=== PATIENT | female | born 1975 | race Caucasian/White ===

== ENCOUNTER 2016-11-15 09:26 | Observation (INO) | payer OTHER ==
[~2016-11-15] VITALS: Ht 170.2 cm; Wt 83.0 kg
[2016-11-15] MEDS ORDERED: SERT50TA PO (09:43)
[2016-11-15] MEDS ORDERED: CLON-412 PO (09:43)
[2016-11-15 12:38] LABS: ALBUMIN 3.1 GM/DL (3.2-5.2); ALBUMIN/GLOBULIN RATIO 0.72 (1.00-1.93); ALKALINE PHOSPHATASE 83 U/L (45-117); ALT/SGPT 35 U/L (12-78); ANION GAP 10 MEQ/L (8-16); AST/SGOT 18 U/L (15-37); BILIRUBIN,DIRECT < 0.1 MG/DL (0.0-0.2); BILIRUBIN,TOTAL 0.3 MG/DL (0.2-1.0); BLOOD UREA NITROGEN 11 MG/DL (7-18); CALCIUM LEVEL 8.9 MG/DL (8.5-10.1); CARBON DIOXIDE LEVEL 24 MEQ/L (21-32); CHLORIDE LEVEL 106 MEQ/L (98-107); CREATININE FOR GFR 0.78 MG/DL (0.55-1.02); GLOMERULAR FILTRATION RATE > 60.0 (>58); GLUCOSE, FASTING 136 MG/DL (70-105); POTASSIUM SERUM 4.3 MEQ/L (3.5-5.1); SODIUM LEVEL 140 MEQ/L (136-145); TOTAL PROTEIN 7.4 GM/DL (6.4-8.2)
[2016-11-15 12:41] LABS: MEAN CORPUSCULAR HEMOGLOBIN 29.5 pg (27.0-33.0); MEAN CORPUSCULAR HGB CONC 33.9 g/dl (32.0-36.5); RED CELL DISTRIBUTION WIDTH 15.2 % (11.5-14.5); WHITE BLOOD COUNT 16.8 K/mm3 (4.0-10.0)
[2016-11-15] MEDS ORDERED: PANTOPRAZOLE 40MG INJ (PROTONIX) (C9113) IV SCH (13:00)
[2016-11-15] MEDS ORDERED: ONDANSETRON 4MG/2ML VIAL (J2405) IV PRN (13:15)
[2016-11-15 14:57] LABS: METHADONE URINE NEGATIVE (NEGATIVE)
[2016-11-15] MEDS: NS 1,000 ML IV SCH (15:10)
--- NOTE | 2016-11-15 15:14 | ECGEPIP ---
Stationary ECG Study [facility] - ED Test Date: 2016-11-15 Pat Name: ROBINA DELACRUZ Department: Room: [place] [address] Gender: F Quality Rn: cody : 1975 Requested By: Viviana Gutierrez Order Number: [id number] Reading MD: Edward Khan Measurements Intervals [place] Rate: 45 P: 5 MA: 137 QRS: 61 QRSD: 112 T: 31 QT: 513 QTc: 444 Interpretive Statements SINUS BRADYCARDIA INC. RBBB NO PRIORS Electronically Signed On 11-15-2016 15:13:57 EDT by Edward Khan
--- NOTE | 2016-11-15 15:30 | HPE ---
DATE OF ADMISSION: 11/15/2016 PRIMARY CARE PROVIDER: Dr. St CHIEF COMPLAINT: Suicidal ideations. Overdose medication. HISTORY OF PRESENT ILLNESS: Ms. Saavedra is a 41-year-old female with a past medical history of hypertension who was transferred from [facility] due to suicidal ideations and overdosing on medications including Xanax, Klonipin and [place]iski. The patient's daughter accompanied her who expressed that yesterday the patient called her and mentioned that she wants to say goodbye to her. The patient was very lethargic and confused. She asked patient where she was, however, patient did not answer her. patient's daughter found her very lethargic and as well as having some pills in her hand and tried to swallow, however, the patient's daughter prevented her from doing that and since the patient was drowsy she called nitric acid concentrator operator. They also found some Klonopin in patient's bra. Also the patient has residue of the pills on her mouth. The patient has a long history of heroin abuse and her last heroin intake was on Tuesday. The patient has been sharing needles with her boyfriend. The patient denies fever, chills or night sweats. The patient also denies lightheadedness and dizziness. However, the patient expressed that she is extremely tired and would like to sleep. At [facility] patient had elevated ethanol, negative urine tox, leukocytosis (white blood cells 14), UA was negative ALLERGIES: No known drug allergies. PAST MEDICAL HISTORY: Hypertension. Depression. IV drug use. Tobacco abuse. HOME MEDICATIONS: - clonidine 0.1 mg by mouth daily - sertraline 50 mg by mouth daily PAST SURGICAL HISTORY: Removing abscess secondary to IV drug use from the left prone surface of the foot and right forearm. REVIEW OF SYSTEMS: Review of system cannot be obtained due to patient being lethargic. PHYSICAL EXAMINATION: VITAL SIGNS: Temperature 97.7, pulse 48, respiratory rate 20, blood 181/40, pulse oximetry 98% on room air. GENERAL APPEARANCE: The patient was drowsy, however, was oriented to time, place and person. HEENT: Normocephalic, atraumatic. Pupils are equal and reactive to light. Oral mucosa is moist. NECK: Soft, supple. No lymphadenopathy or thyromegaly. HEART: Regular rate and rhythm. Normal S1, S2. ABDOMEN: Soft, nontender. Positive bowel sounds in all quadrants. EXTREMITIES: The patient has IV tracts on her upper extremity. The patient also has healed scars from removal of the abscess in the left posterior surface of the foot and the right forearm as well as erythema. However, the patient has normal strength in both upper and lower extremities. The patient also has normal sensation in both upper and lower extremities. No cyanosis, no lower extremity edema. LUNGS: Clear breath sounds bilaterally. Good air movement. NEUROLOGICAL: Cannot evaluate cranial nerves due to patient being lethargic. LABORATORY DATA: WBC 16.8, RBC 4.87, hemoglobin 14.4, hematocrit 42.3, MCV 87, MCH 29.5, MCHC 33.9, RDW 15.2, platelet count 233, sodium 140. Potassium 4.3. Chloride 106, carbon dioxide 24, anion gap 10. BUN 1, creatinine 0.78, GFR 160, fasting glucose 136. Calcium 8.9. Total bilirubin 8.3, direct bilirubin less than 0.1. AST 18, ALT 35, alkaline phosphatase 83. Total protein 7.4, albumin 3.1. TSH 0.235.Toxicology: Salicylate 2.5, acetaminophen less than 2. Etoh alcohol less than 0.003. At [facility] (11/14/2016): BUN 10, sodium 140, potassium 3.9 , CO2 27, anion gap 7, creatinine 0.8, GFR greater than 60, ALT 27, AST 21, ALP 98, calcium 9.3, total bilirubin 0.2, albumin 4.1, ethanol 0.21, qualitative urine tox negative, white blood cells 14, red blood cells 5.08, hemoglobin 14.2 , hematocrit 43.1, MCV 84.8, MCH 28, MCHC 32.9, RDW 16, blood at 263, lactic acid 1.5. UA: Urine specific gravity 1.004, urine appearance clear, urine color yellow, urine specific gravity 1.004, urine protein negative, urine ketones negative, urine blood negative, urine nitrate negative, urine bilirubin negative, and urine urobilinogen 0.2, urine leukocyte esterase negative, urine glucose negative. urine hCG qualitative negative IMAGING TECHNIQUES : (From [facility] which were done on 11/15/2016) CT cervical spine without contrast which indicated no cervical spine fracture CT manage of the head without contrast which indicated no acute intracranial abnormalities ASSESSMENT AND PLAN: 1. Suicidal ideations. At this point, we make the patient nothing by mouth. I started the patient on IV fluid at a rate of 80 and requested sitter for her. we will continue monitoring patient. 2. Leukocytosis: This is possibly secondary to a stress however based on physical examination and previous lab and vital signs it is less likely due to infection, we'll continue monitoring patient's white blood cell. 3. Hypertension. This is possibly secondary to noncompliant with her home hypertension medications versus cardiovascular. EKG does not show any new pathology. It shows sinus bradycardia, possibly secondary to medications as well as moderate conduction delay. first set of cardiac marker was negative. We will check the cardiac cath lab radiology technologist for two more sets. At home patient is on clonidine 0.1 mg by mouth daily however due to bradycardia I have stopped this medication and started her on Norvasc. 4. Heroin abuse. The patient has been sharing needle with her boyfriend. I have ordered HIV test and the patient was verbally consented and her daughter has signed the consent form. Also I have ordered hepatitis profile, which patient consented. These tests are pending at this time. 5. Tobacco abuse. I have started the patient on NicoDerm. 6. History of depression. I will continue the patient on Zoloft 50 mg by mouth daily. 7. Deep venous thrombosis (DVT) prophylaxis. The patient is on Lovenox 40 subcutaneously (SC) daily. My preceptor for this patient encounter was Dr. Soco Moreno. The preceptor was physically present in the building during the encounter and was fully available. As needed, all aspects of the patient interview, examination, medical decision making process, and medical care plan development were reviewed and approved by the preceptor. The preceptor is aware and concurs with the plan as stated in the body of this note and will attest to such by his/her cosignature. BLAIR
[2016-11-15 17:31] VITALS: BP 174/109
[2016-11-15] MEDS: SERTRALINE HCL 50 MG TAB PO SCH (17:46)
[2016-11-15] MEDS: amLODIPine 5 MG TAB PO SCH (17:46)
[2016-11-15] MEDS: ENOXAPARIN 40 MG/0.4 ML SYRINGE (J1650) SC SCH (17:47)
[2016-11-15] MEDS: NICOTINE 21MG/24HR 1 EA TRANSDERMAL TD PRN (17:51)
[2016-11-15 20:32] VITALS: BP 157/100
[2016-11-15 21:39] VITALS: BP 168/99
[2016-11-16] VITALS (8 sets, daily range): BP systolic 101–171; BP diastolic 63–105
[2016-11-16] MEDS ORDERED: hydrALAZINE INJ 20 MG/ML VIAL IV ONE (02:45)
[2016-11-16] MEDS: NS 1,000 ML IV SCH (03:10)
[2016-11-16] MEDS ORDERED: CALCIUM CARBONATE 500 MG CHEW U/D PO PRN (04:15)
[2016-11-16 05:40] LABS: BASO # 0.1 K/mm3 (0.0-0.2); BASO % 0.3 % (0.0-1.0); EOS # 0.2 K/mm3 (0.0-0.50); EOS % 1.1 % (0.0-3.0); LARGE UNSTAINED CELL # 0.3 K/mm3 (0.0-0.4); LARGE UNSTAINED CELL % 1.8 % (0.0-4.0); LYMPH # 3.8 K/mm3 (1.5-4.5); LYMPH % 20.3 % (24.0-44.0); MEAN CORPUSCULAR HEMOGLOBIN 29.2 pg (27.0-33.0); MEAN CORPUSCULAR HGB CONC 33.7 g/dl (32.0-36.5); MEAN CORPUSCULAR VOLUME 86.8 fl (80.0-96.0); MONO # 1.1 K/mm3 (0.0-0.8); MONO % 6.5 % (0.0-5.0); NEUTROPHILS # 12.2 K/mm3 (1.8-7.7); PLATELET COUNT, AUTOMATED 235 k/mm3 (150-450); RED CELL DISTRIBUTION WIDTH 15.3 % (11.5-14.5); WHITE BLOOD COUNT 17.5 K/mm3 (4.0-10.0)
[2016-11-16 05:53] LABS: ANION GAP 11 MEQ/L (8-16); BLOOD UREA NITROGEN 11 MG/DL (7-18); CALCIUM LEVEL 8.3 MG/DL (8.5-10.1); CARBON DIOXIDE LEVEL 22 MEQ/L (21-32); CHLORIDE LEVEL 108 MEQ/L (98-107); CREATININE FOR GFR 0.64 MG/DL (0.55-1.02); GLOMERULAR FILTRATION RATE > 60.0 (>58); GLUCOSE, FASTING 114 MG/DL (70-105); POTASSIUM SERUM 3.8 MEQ/L (3.5-5.1); SODIUM LEVEL 141 MEQ/L (136-145)
[2016-11-16] MEDS ORDERED: ONDANSETRON 4 MG TAB (S0181) PO SCH (06:00)
[2016-11-16] MEDS ORDERED: ONDANSETRON 4 MG TAB (S0181) PO PRN (06:00)
[2016-11-16] MEDS: PANTOPRAZOLE 40MG TAB (PROTONIX) PO SCH (08:36)
[2016-11-16] MEDS: SERTRALINE HCL 50 MG TAB PO SCH (08:37)
[2016-11-16] MEDS: amLODIPine 5 MG TAB PO SCH (08:37)
[2016-11-16] MEDS: ENOXAPARIN 40 MG/0.4 ML SYRINGE (J1650) SC SCH (08:37)
[2016-11-16] MEDS ORDERED: cloNIDine 0.1 MG TAB PO SCH (09:00)
[2016-11-16 09:15] LABS: T UPTAKE 26 % (30-39); THYROXINE (T4) 9.3 UG/DL (4.5-12.0)
[2016-11-16] MEDS ORDERED: AMLO5TAB2 PO (14:33)
--- NOTE | 2016-11-16 18:35 | REP ---
Clinical: Possible aspiration pneumonia . Comparison: None . Technique: PA and lateral. Findings: The mediastinum and cardiac silhouette are normal. The lung alexis are clear and without acute consolidation, effusion, or pneumothorax. The skeletal structures are intact and normal. Impression: 1. No acute cardiopulmonary process. Signed by Kirill Martinez MD 11/16/2016 06:28 P
--- NOTE | 2016-11-16 21:16 | CR ---
DATE OF CONSULTATION: 11/16/2016 CONSULTATION REPORT FOR: Basil EdwardsDO HISTORY OF PRESENT ILLNESS: 41-year-old female with history of opioid dependency (IV heroin) admitted to the medical floor for overdose of an unknown amount of medication. According to the chart, patient was transferred from [facility] after the overdose. The patient's daughter mentioned that she wanted to say goodbye to her. The patient was lethargic and confused. It was reported that she was having some pills in her hand and tried to swallow. Daughter prevented her from doing that and she was brought to the hospital. It is reported that she was taking Zantac and Klonopin. It is reported that she had some Klonopin in her bra. As above, she has a long history of heroin abuse, last heroin intake was on Tuesday. It is also stated that she has been sharing needles with her boyfriend. During the interview today, patient is drowsy, falling asleep, unable to provide full information. Patient reports that she was taking Xanax and clonidine. Patient states that she does not remember how many she took. Patient is minimizing. Patient is requesting to be discharged. Patient is denying feelings of depression or suicidal ideation. She admits to heroin abuse but also says that she is trying to cut down. She admits that she has been sharing needles. At this point, she is an unreliable historian. PAST MEDICAL HISTORY: Hypertension. PAST PSYCHIATRIC HISTORY: Apparently has been diagnosed with depression and IV drug dependency (heroin). Patient apparently has been taking sertraline for depression. FAMILY HISTORY: Unobtainable. SOCIAL HISTORY: Unobtainable. SUBSTANCE ABUSE HISTORY: As above, patient has a heroin dependency. Patient is unable to provide details and further information. REVIEW OF SYSTEMS: Unobtainable. LABORATORY DATA: CBC: WBC at admission was 16.8 and today, 11/16/2016, it is 17.5, rest of the CBC is unremarkable. CMP was within normal limits. TSH was 0.3, but repeated on 11/16/2016, was within normal limits as was free T4 index and T4. MENTAL STATUS EXAMINATION: Patient is dressed in hospital gown. Patient is drowsy with slurred speech and falling asleep, poor eye contact. Mood is depressed. Affect is restricted. Unable to test attention, concentration, and memory since patient continues to be drowsy. Patient is oriented to time, place, person, and situation. Patient is denying auditory or visual hallucination. Patient is denying paranoid, persecutory, somatic, grandiose, or cheondoism delusions. Patient is denying suicidal or homicidal ideation but patient is not reliable, she just overdosed, and was admitted to the medical floor. Judgment and insight are poor. DIAGNOSES: AXIS I: Major depressive disorder. Heroin dependency. AXIS II: Deferred. AXIS III: Status post overdose. Hypertension. RECOMMENDATIONS: Patient is now medically cleared. Patient has just overdosed, is showing very little judgment and insight. Patient needs to continue treatment in an inpatient psychiatric facility so we will transfer the patient to continue her treatment at behavioral health.
[2016-11-16] MEDS: NICOTINE 21MG/24HR 1 EA TRANSDERMAL TD PRN (22:22)
[2016-11-17 03:57] VITALS: BP 125/78
[2016-11-17 05:34] LABS: BASO % 0.3 % (0.0-1.0); EOS # 0.2 K/mm3 (0.0-0.50); EOS % 2.2 % (0.0-3.0); LARGE UNSTAINED CELL # 0.2 K/mm3 (0.0-0.4); LARGE UNSTAINED CELL % 2.2 % (0.0-4.0); LYMPH # 3.3 K/mm3 (1.5-4.5); LYMPH % 33.3 % (24.0-44.0); MEAN CORPUSCULAR HEMOGLOBIN 29.3 pg (27.0-33.0); MEAN CORPUSCULAR HGB CONC 33.8 g/dl (32.0-36.5); MEAN CORPUSCULAR VOLUME 86.8 fl (80.0-96.0); MONO # 0.7 K/mm3 (0.0-0.8); MONO % 6.8 % (0.0-5.0); NEUTROPHILS # 5.5 K/mm3 (1.8-7.7); NEUTROPHILS % 55.2 % (36.0-66.0); PLATELET COUNT, AUTOMATED 188 k/mm3 (150-450); RED CELL DISTRIBUTION WIDTH 14.7 % (11.5-14.5)
[2016-11-17 05:45] LABS: ANION GAP 8 MEQ/L (8-16); BLOOD UREA NITROGEN 9 MG/DL (7-18); CALCIUM LEVEL 8.4 MG/DL (8.5-10.1); CARBON DIOXIDE LEVEL 24 MEQ/L (21-32); CHLORIDE LEVEL 107 MEQ/L (98-107); CREATININE FOR GFR 0.65 MG/DL (0.55-1.02); GLOMERULAR FILTRATION RATE > 60.0 (>58); GLUCOSE, FASTING 101 MG/DL (70-105); POTASSIUM SERUM 3.9 MEQ/L (3.5-5.1); SODIUM LEVEL 139 MEQ/L (136-145)
[2016-11-17 06:55] VITALS: BP 98/52
[2016-11-17 07:05] VITALS: BP 82/50
[2016-11-17] MEDS ORDERED: NS 500 ML IV ONE (07:15)
--- NOTE | 2016-11-17 07:52 | DSES ---
DATE OF ADMISSION: 11/15/2016 DATE OF DISCHARGE: 11/17/2016 PRIMARY CARE PHYSICIAN: Basil Edwards MD MANAGER METAL: None. PROCEDURES: None. PRIMARY DIAGNOSIS: 1. Overdose on medications. SECONDARY DIAGNOSIS: 1. Suicidal ideation. 2. Hypertension. 3. Heroin abuse. 4. Tobacco abuse. 5. Depression. DISCHARGE MEDICATION LIST: - sertraline 50 mg by mouth daily - amlodipine 5 mg by mouth daily HOSPITAL COURSE: Ms. Saavedra is a 41-year-old female, who was transferred from [facility] due to suicidal ideations and overdosing on medications including Xanax, Klonopin, also the patient drank high level of whiskey. The patient was lethargic at the time of admission. The patient was admitted and started on IV fluid and made the patient nothing by mouth. based on the labs which were performed in [facility], patient had elevated WBC however no fever. Patient also had CT of the head, and spine which were negative for any new pathology. patient UA was negative as well as urine Toxicology. We maid the patient NPO and started her on IV. Due to leukocytosis, we have ordered chest xray which was negative as well as blood culture which are pending however HIV was negative and hep C Ab Index>11 and HCV RNA Qual was pending which can be follow up as out patient. patient had one episode of hypotension in the morning of discharge however after 500CC bolus of NS her blood pressure control. also as the day of discharge patient WBC was in normal level. In the morning of admission, the patient can tolerate oral intake therefore we started her on clear diet and advanced the diet to a regular diet, which she tolerated well. Also, the patient had episode of hypertension. The patient was on clonidine at home, however, I stopped this medication and I started the patient on Norvasc 5 mg. At the time of discharge, the patient's blood pressure was stable. The patient was more alert and oriented and medically was optimized. We have consulted psychiatrist and she was transfered to [facility] due to suicidal ideation. DIET: Regular diet. FOLLOWUP: Please followup with her primary care within seven days. DISCHARGE TO: The patient will be discharged to [facility] My preceptor for this patient encounter was Dr. Edwards . The preceptor was physically present in the building during the encounter and was fully available. As needed, all aspects of the patient interview, examination, medical decision making process, and medical care plan development were reviewed and approved by the preceptor. The preceptor is aware and concurs with the plan as stated in the body of this note and will attest to such by his/her cosignature. ADDENDUM: DATE OF ADMISSION: 11/15/2016 DATE OF DISCHARGE: 11/17/2016 Patient was discharged on 11/17/2016 due to holding patient for observation. At the time of discharge, patient was medically optimized. My preceptor for this patient encounter was Dr. Basil Edwards. The preceptor was physically present in the building during the encounter and was fully available. As needed, all aspects of the patient interview, examination, medical decision making process, and medical care plan development were reviewed and approved by the preceptor. The preceptor is aware and concurs with the plan as stated in the body of this note and will attest to such by his/ her cosignature. Attending Note: I have independently examined this patient and all aspects of the exam and treatment decisions have been discussed with the resident. A member of the hospitalist staff will continue to follow this patient through discharge. Addendum dictated: SS 12/09/2016 1324 Addendum transcribed: sue 12/09/2016 1331 BLAIR
[2016-11-17 08:00] VITALS: BP 110/68
[2016-11-17] MEDS: amLODIPine 5 MG TAB PO SCH (08:34)
[2016-11-17] MEDS: SERTRALINE HCL 50 MG TAB PO SCH (08:34)
[2016-11-17] MEDS: PANTOPRAZOLE 40MG TAB (PROTONIX) PO SCH (08:34)
[2016-11-17] MEDS: ENOXAPARIN 40 MG/0.4 ML SYRINGE (J1650) SC SCH (08:35)
== END 2016-11-17 11:40 | disposition home or self-care (01) ==
LOC: M ED 13:20 → M ED INP 13:21 → UNDODISOB 17:06 → M PCU 17:18 → M ED INP 17:18 → UNDODISOB 11-17 11:49
PROVIDERS: ADMIT Internal Medicine Nephrology; ATTEND Hospitalist
DX: T42.4X1A Poisoning by benzodiazepines, accidental (unintentional), initial encounter (principal); T14.91 Suicide attempt; F11.10 Opioid abuse, uncomplicated; F17.210 Nicotine dependence, cigarettes, uncomplicated; I10 Essential (primary) hypertension; F32.9 Major depressive disorder, single episode, unspecified; D72.829 Elevated white blood cell count, unspecified; Z79.899 Other long term (current) drug therapy; Y92.9 Unspecified place or not applicable

== ENCOUNTER 2016-11-17 11:50 | Inpatient (IN) | payer OTHER ==
[~2016-11-17] VITALS: Ht 170.2 cm; Wt 83.0 kg
[2016-11-17] MEDS: MULTIVITAMINS/MINERALS THERAP 1 TAB PO SCH (09:00)
[2016-11-17] MEDS: THIAMINE 100 MG TAB PO SCH ×2 (09:00→21:00)
[2016-11-17] MEDS: FOLIC ACID 1 MG TAB PO SCH (09:00)
[~2016-11-17 11:50] MED LIST: AMLO5TAB2 PO; CLON-412 PO; SERT50TA PO; amLODIPine 5 MG TAB PO SCH
[2016-11-17 12:24] VITALS: BP 117/58
--- NOTE | 2016-11-17 13:19 | MHHPEPDOC ---
[facility] History & Physical History and Physical DATE OF ADMISSION: November 17, 2016 at 11:50 LEGAL STATUS AT ADMISSION: DCS CHIEF COMPLAINT: "don't talk to me" HISTORY OF THE PRESENT ILLNESS: Patient is a 41-year-old female, who was discharged from PCU today following a benzodiazepine overdose. She was admitted on 11/15 for the OD. She last used heroin on that date as well. Pt also consuming whiskey at the time of the overdose. She reportedly broke up with her boyfriend of 1.5 years which made her homeless and her best friend last week. Pt is uncooperative to questions to complete admission so most of the information is obtained form her chart. She was evaluated by Dr. Christie on the medical floor and cleared for admission to [facility]. CIWA orders placed. Will address heroin withdrawal if opiate withdrawal begins. Suboxone can be offered at that time. Case discussed with Dr. Toscano who advises detox can be completed in 2-3 doses. Will re-evaluate when pt is more cooperative. PSYCHIATRIC REVIEW OF SYSTEMS: Affective: uncooperative, irritable Anxiety: high Trauma: not yet known Psychosis: not observed Personally: unpleasant PAST PSYCHIATRIC HISTORY: Prior Psychiatric Disorder: depression, zoloft initiated with PCP Dr. St Outpatient Treatment: none Suicidal/Self injurious: overdose several days ago, other unknown at this time. Psychotropic Medication History: zoloft ALLERGIES: Please see below. FAMILY PSYCHIATRIC HISTORY: pt unwilling to answer questions today. Will try again tomorrow. SOCIAL HISTORY: Early Relations/development: . Sibling order: . Paternal relationships: . Education: . Occupational: . Legal: . Martial: . Economic: . Supports: . Abuse/trauma: . SUBSTANCE ABUSE HISTORY: Pt overdosed on xanax, and klonopin. she was drinking whiskey at the time of the overdose PAST MEDICAL/SURGICAL HISTORY: 1. HTN - amlodipine 5 mg daily ordered for her upon discharge from PCU 2. Asthma - albuturol inhaler needs to be ordered for her 3. tobacco dependent VITAL SIGNS: Temperature , pulse , respiratory rate , blood pressure , pulse oximetry % on room air. MENTAL STATUS EXAMINATION: General appearance: Patient is a 41-year old female, who is lying in bed eyes closed, does not want to be disturbed. Speech: spontaneous Thought processes: impaired Thought content: "leave me alone" Abstract reasoning and computation: unable to assess Description of associations: unable to assess Description of abnormal or psychotic thoughts: none observed, did tell nurse she doesn't want to . Judgment: poor Insight: poor Orientation: oriented x 3 Recent and remote memory: unknown Attention span and concentration: impaired Fund of knowledge: unable to assess Mood: angry and irritable Affect: congruent DIAGNOSES: 1. MDD 2. Sedative, hypnotic and opiate dependence 3. alcohol abuse 4. HTN 5. Nicotine addiction ASSESSMENT: Pt appears to have endured many stressors recently culminating on an attempt to kill herself by pills and booze. Toxicology on admission high for BNZ but not elevated for etoh. Pt has a daughter who has called the unit but no SANAM's are available for staff to talk to daughter. Pt is uncooperative with admitting process and wants to be left alone. Will obtain additional information when pt able to participate. Will attempt to get order for nicoderm patch. Agitation meds ordered. PROBLEM LIST: 1. substance abuse 2. suicide ideation 3. ineffective coping INITIAL TREATMENT PLAN: 1. Patient was admitted on a . DCS 2. Complete history was obtained. 3. With patients permission, family will be contacted and database will be expanded. 4. Patients medication regimen will be reviewed and changed accordingly. 5. Patient will be provided with protected environment. 6. Patient will be treated with individual, group, and milieu therapies. 7. Patient will receive supportive psych-education. 8. Discharge planning will commence immediately. 9. Outpatient follow-up treatment will be strongly recommended. 10. The initial treatment plan will focus initially on: * Depression. * Risk for suicide. * Substance abuse. ESTIMATED LENGTH OF STAY: 7-10 DAYS. TIME SPENT COUNSELING AND COORDINATING INITIAL CARE: 50 minutes. Medications Scheduled Amlodipine Besylate (Amlodipine Besylate) 5 Mg Tab, 5 MG PO DAILY Sertraline Hcl (Sertraline HCl) 50 Mg Tab, 50 MG PO DAILY, (Reported) Allergies Coded Allergies: No Known Allergies (Unverified , 11/15/16) Jaida Flores November 17, 2016 13:19
[2016-11-17] MEDS ORDERED: LORazepam 2 MG TAB PO PRN (13:30)
[2016-11-17] MEDS ORDERED: BUPRENORPHINE/NALOXONE 8-2MG SUBLINGUAL TABLET(SUBOXONE) SL PRN (13:30)
[2016-11-17] MEDS ORDERED: ALBUTEROL 90 MCG/ACT 8GM HFA INHALER INH PRN (14:15)
[2016-11-17 14:46] VITALS: BP 92/55
--- NOTE | 2016-11-17 14:51 | IPN ---
DATE: 11/17/2016 A 41-year-old female with history of depression and opiate dependency, admitted to the medical floor for an overdose on an unknown amount of benzodiazepines. SUBJECTIVE: "I don't want to go to psychiatry." OBJECTIVE: The patient is angry, frustrated, minimizing all the events that led to her admission to [facility]. The patient is denying suicidal thought, but again she admits that she does not remember what happened prior to the admission. The patient is uncooperative because of the above and is making statements such as "I'm not going to psychiatry." MENTAL STATUS EXAMINATION: The patient is dressed in hospital gown. Poor eye contact. Speech is poor. Mood is depressed and anxious. Affect is restricted, anger, labile. No evidence of delusions or hallucinations. Memory is fair. The patient is fully oriented. The patient is denying suicidal or homicidal ideation, but again she is minimizing symptoms in order to be discharged. Insight and judgment are poor. ASSESSMENT: 1. Depression. 2. Opiate dependency. 3. Suicidal ideation/overdose. PLAN: The patient will be transferred to behavioral health now that she is medically clear to continue her treatment and evaluation.
[2016-11-17] MEDS ORDERED: diphenhydrAMINE 50 MG CAP PO PRN (15:00)
[2016-11-17] MEDS ORDERED: HALOPERIDOL 10 MG TAB PO PRN ×2 (15:00→23:00)
[2016-11-17] MEDS ORDERED: MOM 30ML SUSPENSION UDC PO PRN (15:45)
[2016-11-17] MEDS ORDERED: traZODone 50 MG TAB PO PRN (15:45)
[2016-11-17] MEDS ORDERED: MAALOX 30 ML SUSP *UDC PO PRN (15:45)
[2016-11-17] MEDS: NICOTINE 21MG/24HR 1 EA TRANSDERMAL TD SCH (16:46)
[2016-11-17] MEDS: ACETAMINOPHEN TAB 650MG DOSE (2X325MG) PO PRN (16:57)
[2016-11-17 18:30] VITALS: BP 100/50
[2016-11-17 18:36] VITALS: BP 130/76
[2016-11-18] MEDS: HALOPERIDOL 10 MG TAB PO PRN ×4 (00:19→19:13)
[2016-11-18 06:35] VITALS: BP 110/54
[2016-11-18] MEDS: SERTRALINE HCL 50 MG TAB PO SCH (07:53)
[2016-11-18] MEDS: FOLIC ACID 1 MG TAB PO SCH (07:53)
[2016-11-18] MEDS: MULTIVITAMINS/MINERALS THERAP 1 TAB PO SCH (07:53)
[2016-11-18] MEDS: ACETAMINOPHEN TAB 650MG DOSE (2X325MG) PO PRN ×2 (07:54→15:36)
[2016-11-18] MEDS: THIAMINE 100 MG TAB PO SCH ×2 (07:54→21:00)
[2016-11-18] MEDS: NICOTINE 21MG/24HR 1 EA TRANSDERMAL TD SCH (07:54)
[2016-11-18 08:10] VITALS: BP 105/63
--- NOTE | 2016-11-18 10:06 | HPEPDOC ---
Medical History and Physical Date of Admission November 17, 2016 at 11:50 History and Physical PCP: None ATTENDING: Dr. Randell Causey HPI: 41yoF admitted to [facility] for unspecified depressive disorder, being medically examined today. The patient was transferred to [facility] 11/15/[address] [facility] related to suicidal ideation and overdosing on medications including Xanax, Klonopin, and alcohol. She was felt stable to transfer to [facility] 11/17/16. Patient states that this morning she got out of bed and felt dizzy. She steadied herself on the wall and slid down the wall and sat down. She denies any falls. She denies any loss of consciousness. Denies any injury. Currently she is ambulating around the unit. Denies any fevers, chills, weakness , fatigue, DE SOUZA, CP, SOB, cough, palpitations, abdominal pain, N/V/D or changes in bowel or bladder habits. PMHx: Hypertension Depression IVDU Tobacco use Hepatitis C treated 1 in the past. PSHX: Abscess left prone surface of the foot and right forearm secondary to IVDU. Tubal ligation SOCHX: Resides in: [facility] Marital Status: Single Kids: 1 Employment: Unemployed Tobacco use: One pack per day ETOH: One to 2 per month Illicit Drugs: Heroin daily IV Drug Use: Heroin Tattoos done unprofessionally: Denies FAMHX: Mother: , [place] Father: , unknown Siblings: 2 brothers related to heroin overdose and HIV Children: Alive, well Unexpected deaths due to medical reasons: None. ROS: As noted in HPI, otherwise 11pt ROS of systems reviewed and remarkable only for LMP unknown. PE: GEN: 41 yo F, appears stated age. Well-nourished, well developed. No acute distress. Alert and oriented x 3. Agitated throughout exam. HEENT: Normocephalic, atraumatic. Pupils are equal, round, and reactive to light. Extraocular movements are intact. No nystagmus appreciated. Sclera are nonicteric. Conjunctiva without injection. Nose midline. Nasal turbinates without bogginess. EACs both patent BL. TMs both visualized and valera with good cone of light, no bulging or erythema. No facial asymmetry. Moist mucous membranes. Dentition fair. Pharynx pink and moist, no cobblestoning. Neck supple , trachea midline. No lymphadenopathy or thyromegaly appreciated. CHEST: Regular rate and rhythm, +S1, +S2 LUNGS: Clear to auscultation bilaterally. No wheezes, rales, or rhonchi. Breathing appears symmetric and easy. Patient is speaking in full sentences. No accessory muscle use. ABD: Round, soft, non-tender, non-distended. +Bowel sounds throughout. No rebound or guarding. No costovertebral angle tenderness. EXT: Pulses 2+ bilaterally dorsalis pedis and radial. No lower extremity edema appreciated. SKIN: [place], dry, warm. Capillary refill <2sec. No rashes. Multiple injection sites are noted at the right wrist, no erythema or drainage. NEURO: Alert and oriented x 3. Cranial nerves III-XII are intact. No focal deficits appreciated. EK11/15/16 SINUS BRADYCARDIA 45 bpm. INC. RBBB NO PRIORS A&P: 41yoF admitted to [facility] for unspecified depressive disorder 1. Psych. Plan per Psychiatry. Obtain follow up EKG to assure the safety of psychiatric medications as they can prolong the QT interval. 2. Nicotine dependence. Patch available. 3. Borderline EKG. No cardiac signs or symptoms appreciated on exam, follow with PCP. Heart rate trends 50s to 60s. CIP/troponin 11/15/16 negative. 4. Follow up. No Primary Care Provider. Will attempt to establish PCP on discharge. 5. Substance use. Withdrawal per psychiatry. 6. IVDU. Hepatitis C RNA is pending at this time. HIV negative. 7. History of hepatitis C. Patient states she was treated in the past however she relapsed using IV heroin. Hepatitis C RNA is pending. Infectious disease referral pending results. 8. Hypertension. Patient reports episodes of dizziness this a.m. Patient remains on Norvasc 5 mg daily with hold parameters. Check orthostatic vital signs. Update EKG. Update CBC/BMP. 9. Leukocytosis. Patient is afebrile. Asymptomatic. Follow-up labs within normal limits 11/17/16. 10. Add hCG to labs. 11. Ana Cristina ROQUE present throughout exam. Vital Signs Vital Signs Date Time Temp Pulse Resp B/P (MAP) Pulse Ox O2 Delivery O2 Flow Rate FiO2 11/18/16 08:10 62 105/63 11/18/16 06:35 97.6 18 11/17/16 14:46 96 Room Air Laboratory Data Labs 24H Item Value Date Time White Blood Count 10.0 K/mm3 11/17/16 0452 Red Blood Count 5.03 M/mm3 11/17/16 0452 Hemoglobin 14.7 g/dl 11/17/16 0452 Hematocrit 43.6 % 11/17/16 0452 Mean Corpuscular Volume 86.8 fl 11/17/16 0452 Mean Corpuscular Hemoglobin 29.3 pg 11/17/16 0452 Mean Corpuscular Hemoglobin Concent 33.8 g/dl 11/17/16 0452 Red Cell Distribution Width 14.7 % H 11/17/16 0452 Platelet Count 188 k/mm3 11/17/16 0452 Sodium Level 139 MEQ/L 11/17/16 0452 Potassium Level 3.9 MEQ/L 11/17/16 0452 Chloride Level 107 MEQ/L 11/17/16 0452 Carbon Dioxide Level 24 MEQ/L 11/17/16 0452 Anion Gap 8 MEQ/L 11/17/16 0452 Blood Urea Nitrogen 9 MG/DL 11/17/16 0452 Creatinine 0.65 MG/DL 11/17/16 0452 Glomerular Filtration Rate > 60.0 11/17/16 0452 Fasting Glucose 101 MG/DL 11/17/16 0452 Calcium Level 8.4 MG/DL L 11/17/16 0452 Thyroid Stimulating Hormone (TSH) 0.483 uIU/ML 11/16/16 0510 Home Medications Scheduled Amlodipine Besylate (Amlodipine Besylate) 5 Mg Tab, 5 MG PO DAILY Sertraline Hcl (Sertraline HCl) 50 Mg Tab, 50 MG PO DAILY Allergies Coded Allergies: No Known Allergies (Unverified , 11/15/16) Theresa Bates November 18, 2016 10:06
[2016-11-18 11:15] LABS: MEAN CORPUSCULAR HEMOGLOBIN 29.2 pg (27.0-33.0); MEAN CORPUSCULAR HGB CONC 33.8 g/dl (32.0-36.5); MEAN CORPUSCULAR VOLUME 86.4 fl (80.0-96.0); RED CELL DISTRIBUTION WIDTH 14.8 % (11.5-14.5); WHITE BLOOD COUNT 9.1 K/mm3 (4.0-10.0)
[2016-11-18 11:32] LABS: CONTROL LINE HCG INT CTR LINE PRESENT
[2016-11-18 11:42] LABS: ALBUMIN 2.8 GM/DL (3.2-5.2); ALBUMIN/GLOBULIN RATIO 0.68 (1.00-1.93); ALKALINE PHOSPHATASE 88 U/L (45-117); ALT/SGPT 28 U/L (12-78); ANION GAP 8 MEQ/L (8-16); AST/SGOT 17 U/L (15-37); BILIRUBIN,TOTAL 0.2 MG/DL (0.2-1.0); BLOOD UREA NITROGEN 13 MG/DL (7-18); CALCIUM LEVEL 8.2 MG/DL (8.5-10.1); CARBON DIOXIDE LEVEL 24 MEQ/L (21-32); CHLORIDE LEVEL 109 MEQ/L (98-107); CREATININE FOR GFR 0.63 MG/DL (0.55-1.02); GLOMERULAR FILTRATION RATE > 60.0 (>58); GLUCOSE, FASTING 99 MG/DL (70-105); POTASSIUM SERUM 4.2 MEQ/L (3.5-5.1); SODIUM LEVEL 141 MEQ/L (136-145); TOTAL PROTEIN 6.9 GM/DL (6.4-8.2)
[2016-11-18] MEDS: amLODIPine 5 MG TAB PO SCH (11:44)
--- NOTE | 2016-11-18 12:00 | MHIPNPDOC ---
[facility] Progress Note Progress Note DATE OF SERVICE: 11/18/16 HISTORY: Day 2 of admission. Pt transferred from [facility] yesterday. Has been basically uncooperative since arriving. VITAL SIGNS: See below. NEW TEST RESULTS: Labs, EKG pending, hypotension CURRENT MEDICATIONS: See below. MENTAL STATUS EXAMINATION: Patient is a 41-year old female, who is lying in bed, head covered by sheet and blanket. refuses to sit up and converse with staff. Speech: Is spontaneous Language skills are intact Thought processes including: unable to assess. Thought content: "Leave me alone I'm tired. I'm leaving tomorrow". Abstract reasoning, and computation: unable to assess Description of associations: pt refuses to cooperate Description of abnormal or psychotic thoughts: unable to assess Judgment: poor Insight: poor Orientation: unable to assess. Recent and remote memory: unable to assess. Attention span and concentration: unable to assess Fund of knowledge: uncooperative to interview Mood: irritable Affect: lying in bed. head covered by sheet DIAGNOSES: 1. MDD, single episode 2. Sedative, hypnotic and opiate dependency 3. alcohol abuse 4. HTN 5. Hepatitis C treatment x 1 ASSESSMENT:approached pt to discuss admission, obtain history, discuss meds, preference for drug treatment, discharge planning. She declined to meet stating "I'm tired. Leave me alone. God!" in an angry voice. Pt's request honored. Pt also stated she is leaving tomorrow. Pt is refusing all unit milieu programming. According to information received from her daughter the patient has not been employed for years. No known means of support, not known if she receives any benefits. Pt was living with who is no longer in the picture so pt does not have a place to live upon leaving the hospital. Pt has been abusing heroin for years. She has never been a role model or a dependable adult influence for her daughter who is now about 20 yo. Pt has told daughter she is not interested in substance abuse treatment of any kind. Pt has been seeing her PCP for sertraline , no psychiatric professionals involved in her care. It is not known if pt has attempted suicide in the past. Triggers for the overdose on 11/15 was the break up with BF and the loss of 17 people she knew to heroin overdoses. Pt has been taking meds. She took agitation meds last evening. She appeared to sleep. She has been hypotensive and Norvasc had to be held. She reported to nursing that she slid down the wall when she got up and felt dizzy. but did not fall, no head injury MANAGEMENT PLAN: continue meds, close observation, encourage meals, and fluid intake, monitor vital signs. TIME SPENT: 15 minutes. Vital Signs Vital Signs Date Time Temp Pulse Resp B/P (MAP) Pulse Ox O2 Delivery O2 Flow Rate FiO2 11/18/16 08:10 62 105/63 11/18/16 06:35 97.6 18 11/17/16 14:46 96 Room Air Laboratory Data 24H Labs Laboratory Tests 2 11/18/16 10:52: Anion Gap 8, Glomerular Filtration Rate > 60.0, Blood Urea Nitrogen 13, Creatinine 0.63, Sodium Level 141, Potassium Level 4.2, Chloride Level 109H, Carbon Dioxide Level 24, Calcium Level 8.2L, Aspartate Amino Transf (AST/SGOT) 17, Alanine Aminotransferase (ALT/SGPT) 28, Alkaline Phosphatase 88, Total Bilirubin 0.2, Total Protein 6.9, Albumin 2.8L, Albumin/Globulin Ratio 0.68L, Human Chorionic Gonadotropin, Qual NEGATIVE CBC/BMP Laboratory Tests 11/18/16 10:52 Red Blood Count 4.58, Mean Corpuscular Volume 86.4, Mean Corpuscular Hemoglobin 29.2, Mean Corpuscular Hemoglobin Concent 33.8, Red Cell Distribution Width 14.8 H, Calcium Level 8.2 L, Aspartate Amino Transf (AST/SGOT) 17, Alanine Aminotransferase (ALT/SGPT) 28, Alkaline Phosphatase 88, Total Bilirubin 0.2, Total Protein 6.9, Albumin 2.8 L Current Medications Current Medications Acetaminophen (Tylenol Tab) 650 mg Q6HP PRN PO HEADACHE or DISCOMFORT Last administered on 11/18/16t 07:54; Start 11/17/16 at 15:45; Stop 12/17/16 at 15:44 Al Hydrox/Mg Hydrox/Simethicone (Mylanta) 30 ml Q4HP PRN PO HEARTBURN/ INDIGESTION; Start 11/17/16 at 15:45; Stop 12/17/16 at 15:44 Albuterol Sulfate (Proventil, Ventolin Hfa) 2 puff Q4HP PRN INH SHORTNESS OF BREATH; Start 11/17/16 at 14:15; Stop 12/17/16 at 14:14 Amlodipine Besylate (Norvasc) 5 mg DAILY PO ; Start 11/17/16 at 09:00; Stop at 08:59; Status Cancel Amlodipine Besylate (Norvasc) 5 mg DAILY PO ; Start 11/18/16 at 09:00; Stop at 08:59 Buprenorphine/ Naloxone (Suboxone 8/2mg) 1 tab QPM PRN SL WITHDRAWAL SYMPTOMS; Start 11/17/16 at 13:30; Stop 11/18/16 at 13:30; Status UNV Diphenhydramine HCl (Benadryl) 100 mg ASDIRECTED PRN PO agitation/anxiety; Start 11/17/16 at 15:00; Stop 11/17/16 at 15:05; Status DC Diphenhydramine HCl (Benadryl) 100 mg Q8HP PRN PO agitation/anxiety; Start at 15:00; Stop 12/17/16 at 14:59 Folic Acid (Folic Acid) 1 mg DAILY PO Last administered on 11/18/16 07:53; Start 11/17/16 at 09:00; Stop 12/17/16 at 08:59 Haloperidol (Haldol) 10 mg ASDIRECTED PRN PO agitation; Start 11/17/16 at 15:00 ; Stop 11/17/16 at 15:05; Status DC Haloperidol (Haldol) 10 mg Q8H PRN PO agitation Last administered on 11/18/16 00:19; Start 11/17/16 at 18:00; Stop 12/17/16 at 17:59 Haloperidol (Haldol) 10 mg Q8H PRN PO agitation; Start 11/17/16 at 23:00; Stop 11/17/16 at 23:00; Status DC Lorazepam (Ativan) 2 mg ASDIRECTED PRN PO SEE PROTOCOL; Start 11/17/16 at 13:30 ; Stop 11/24/16 at 13:29 Magnesium Hydroxide (Milk Of Magnesia) 30 ml DAILYPRN PRN PO CONSTIPATION; Start 11/17/16 at 15:45; Stop 12/17/16 at 15:44 Multivitamins (Theragram-M) 1 tab DAILY PO Last administered on 11/18/16 07:53 ; Start 11/17/16 at 09:00; Stop 12/17/16 at 08:59 Nicotine (Nicoderm Cq 21mg) 1 patch DAILY TD Last administered on 11/18/16 07: 54; Start 11/17/16 at 09:00; Stop 12/17/16 at 08:59 Sertraline HCl (Zoloft) 50 mg DAILY PO Last administered on 11/18/16 07:53; Start 11/18/16 at 09:00; Stop 12/18/16 at 08:59 Thiamine HCl (Thiamine HCl) 100 mg BID PO Last administered on 11/18/16 07:54 ; Start 11/17/16 at 09:00; Stop 11/19/16 at 23:59 Trazodone HCl (Desyrel) 50 mg QHS PRN PO insomnia Last administered on 00:19; Start 11/17/16 at 15:45; Stop 12/17/16 at 15:44 Allergies Coded Allergies: No Known Allergies (Unverified , 11/15/16) Jaida Flores November 18, 2016 12:00
[2016-11-18 12:28] VITALS: BP_SYST 106; BP_SYST 108; BP_SYST 122; BP_DIAS 62; BP_DIAS 64; BP_DIAS 68
--- NOTE | 2016-11-18 14:50 | ECGEPIP ---
Stationary ECG Study [facility] Test Date: 2016-11-18 Pat Name: ROBINA DELACRUZ Department: Room: [place] [address] Gender: F Railroader: ALE : 1975 Requested By: Theresa Bates Order Number: [id number] Reading MD: Germán Suazo Measurements Intervals [place] Rate: 66 P: 35 TX: 149 QRS: 75 QRSD: 110 T: 52 QT: 514 QTc: 540 Interpretive Statements Normal sinus rhythm Rightward axis with incomplete Right bundle branch block and somewhat poor precordial R-wave progression Significant QT prolongation - rule out electrolyte disturbance, effect of antiarrhythmics or psychotropic medications etc. Slightly more rapid Heart rate from prior tracing 11/15/16. Electronically Signed On 11-18-2016 14:50:08 EDT by Germán Suazo
[2016-11-18] MEDS ORDERED: diphenhydrAMINE 50 MG CAP PO PRN (15:00)
[2016-11-18 18:00] VITALS: BP 129/63
[2016-11-18 18:10] VITALS: BP 114/66
[2016-11-19 07:09] VITALS: BP_SYST 109; BP_SYST 111; BP_SYST 121; BP_DIAS 67; BP_DIAS 76
[2016-11-19 08:35] VITALS: BP 124/72
[2016-11-19] MEDS: SERTRALINE HCL 50 MG TAB PO SCH (08:35)
[2016-11-19] MEDS: MULTIVITAMINS/MINERALS THERAP 1 TAB PO SCH (08:35)
[2016-11-19] MEDS: FOLIC ACID 1 MG TAB PO SCH (08:35)
[2016-11-19] MEDS: amLODIPine 5 MG TAB PO SCH (08:35)
[2016-11-19] MEDS: THIAMINE 100 MG TAB PO SCH (08:35)
[2016-11-19] MEDS: ACETAMINOPHEN TAB 650MG DOSE (2X325MG) PO PRN (08:36)
[2016-11-19] MEDS: NICOTINE 21MG/24HR 1 EA TRANSDERMAL TD SCH (08:37)
--- NOTE | 2016-11-19 09:56 | MHIPNPDOC ---
[facility] Progress Note Progress Note DATE OF SERVICE: 11/19/16 HISTORY: Day 3 of admission VITAL SIGNS: See below. NEW TEST RESULTS: EKG: Normal sinus rhythm Rightward axis with incomplete Right bundle branch block and somewhat poor precordial R-wave progression Significant QT prolongation - rule out electrolyte disturbance, effect of antiarrhythmics or psychotropic medications etc. Slightly more rapid Heart rate from prior tracing 11/15/16. CURRENT MEDICATIONS: See below. MENTAL STATUS EXAMINATION: Patient is a 41-year old female, who is dressed in hospital garb, long hair, good eye contact, first time she agreed to meet with brief writer. Speech: Is spontaneous and clear, over-reacts in her replies to questions about suicide. Language skills are good Thought processes including: linear Thought content: refusing all offers of MH or substance abuse treatment Abstract reasoning, and computation: good. Description of associations: good. Description of abnormal or psychotic thoughts: denies psychotic symptoms and none illicited. Denies ever having suicidal intent. Denies homicidal intent. Judgment: poor Insight: very limited Orientation: oriented to time, place and person Recent and remote memory: intact Attention span and concentration: adequate Fund of knowledge: average Mood: euthymic. Affect: anxious. DIAGNOSES: 1. MDD, single episode, severe 2. sedative, hypnotic and opiate dependency 3. nicotine dependency ASSESSMENT:Pt refused to discuss any part of her admission until today. She is expecting discharge today. She declines referral for grief counseling, mental health/depression treatment, substance abuse treatment inpatient or outpatient. She states she plans to return to live at her boyfriends, with his parents. She has a 20 yo daughter who is planning to [facility] and can take her there. Pt states her daughter will not approve of the plan. We cannot force her to go to treatment. She has been to rehab several times and does not remain abstinent. She does not want to discuss it further. Pt denies psychotic symptoms, denies milo or hypomania. Denies suicidal or homicidal thoughts, plan or intent. Pt offers no explanation for her overdose behavior. Pt needs PCP appt for follow up for sertraline. She should request a repeat EKG and was informed of this. MANAGEMENT PLAN: If we can verify pt has a place to go we will discharge her this evening. Nursing notified. Continue sertraline, Pt advised not to stop the medication abruptly. TIME SPENT: 30 minutes. Vital Signs Vital Signs Date Time Temp Pulse Resp B/P (MAP) Pulse Ox O2 Delivery O2 Flow Rate FiO2 11/19/16 08:35 77 124/72 11/18/16 18:00 99.0 16 11/17/16 14:46 96 Room Air Laboratory Data 24H Labs Laboratory Tests 2 11/18/16 10:52: Anion Gap 8, Glomerular Filtration Rate > 60.0, Blood Urea Nitrogen 13, Creatinine 0.63, Sodium Level 141, Potassium Level 4.2, Chloride Level 109H, Carbon Dioxide Level 24, Calcium Level 8.2L, Aspartate Amino Transf (AST/SGOT) 17, Alanine Aminotransferase (ALT/SGPT) 28, Alkaline Phosphatase 88, Total Bilirubin 0.2, Total Protein 6.9, Albumin 2.8L, Albumin/Globulin Ratio 0.68L, Human Chorionic Gonadotropin, Qual NEGATIVE CBC/BMP Laboratory Tests 11/18/16 10:52 Red Blood Count 4.58, Mean Corpuscular Volume 86.4, Mean Corpuscular Hemoglobin 29.2, Mean Corpuscular Hemoglobin Concent 33.8, Red Cell Distribution Width 14.8 H, Calcium Level 8.2 L, Aspartate Amino Transf (AST/SGOT) 17, Alanine Aminotransferase (ALT/SGPT) 28, Alkaline Phosphatase 88, Total Bilirubin 0.2, Total Protein 6.9, Albumin 2.8 L Current Medications Current Medications Acetaminophen (Tylenol Tab) 650 mg Q6HP PRN PO HEADACHE or DISCOMFORT Last administered on 11/19/16t 08:36; Start 11/17/16 at 15:45; Stop 12/17/16 at 15:44 Al Hydrox/Mg Hydrox/Simethicone (Mylanta) 30 ml Q4HP PRN PO HEARTBURN/ INDIGESTION; Start 11/17/16 at 15:45; Stop 12/17/16 at 15:44 Albuterol Sulfate (Proventil, Ventolin Hfa) 2 puff Q4HP PRN INH SHORTNESS OF BREATH; Start 11/17/16 at 14:15; Stop 12/17/16 at 14:14 Amlodipine Besylate (Norvasc) 5 mg DAILY PO ; Start 11/17/16 at 09:00; Stop at 08:59; Status Cancel Amlodipine Besylate (Norvasc) 5 mg DAILY PO Last administered on 11/19/16 08: 35; Start 11/18/16 at 09:00; Stop 12/18/16 at 08:59 Buprenorphine/ Naloxone (Suboxone 8/2mg) 1 tab QPM PRN SL WITHDRAWAL SYMPTOMS; Start 11/17/16 at 13:30; Stop 11/18/16 at 13:30; Status UNV Diphenhydramine HCl (Benadryl) 100 mg ASDIRECTED PRN PO agitation/anxiety; Start 11/17/16 at 15:00; Stop 11/17/16 at 15:05; Status DC Diphenhydramine HCl (Benadryl) 100 mg Q8HP PRN PO agitation/anxiety; Start at 15:00; Stop 12/17/16 at 14:59 Folic Acid (Folic Acid) 1 mg DAILY PO Last administered on 11/19/16 08:35; Start 11/17/16 at 09:00; Stop 12/17/16 at 08:59 Haloperidol (Haldol) 10 mg ASDIRECTED PRN PO agitation; Start 11/17/16 at 15:00 ; Stop 11/17/16 at 15:05; Status DC Haloperidol (Haldol) 10 mg Q8H PRN PO agitation Last administered on 11/18/16 15:39; Start 11/17/16 at 18:00; Stop 12/17/16 at 17:59 Haloperidol (Haldol) 10 mg Q8H PRN PO agitation; Start 11/17/16 at 23:00; Stop 11/17/16 at 23:00; Status DC Lorazepam (Ativan) 2 mg ASDIRECTED PRN PO SEE PROTOCOL Last administered on 18:14; Start 11/17/16 at 13:30; Stop 11/24/16 at 13:29 Magnesium Hydroxide (Milk Of Magnesia) 30 ml DAILYPRN PRN PO CONSTIPATION; Start 11/17/16 at 15:45; Stop 12/17/16 at 15:44 Multivitamins (Theragram-M) 1 tab DAILY PO Last administered on 11/19/16 08:35 ; Start 11/17/16 at 09:00; Stop 12/17/16 at 08:59 Nicotine (Nicoderm Cq 21mg) 1 patch DAILY TD Last administered on 11/19/16 08: 37; Start 11/17/16 at 09:00; Stop 12/17/16 at 08:59 Sertraline HCl (Zoloft) 50 mg DAILY PO Last administered on 11/19/16 08:35; Start 11/18/16 at 09:00; Stop 12/18/16 at 08:59 Thiamine HCl (Thiamine HCl) 100 mg BID PO Last administered on 11/19/16 08:35 ; Start 11/17/16 at 09:00; Stop 11/19/16 at 23:59 Trazodone HCl (Desyrel) 50 mg QHS PRN PO insomnia Last administered on 00:19; Start 11/17/16 at 15:45; Stop 12/17/16 at 15:44 Allergies Coded Allergies: No Known Allergies (Unverified , 11/15/16) Jaida Flores November 19, 2016 09:56
--- NOTE | 2016-11-19 14:25 | MHDSPDOC ---
[facility] Discharge Summary Discharge Summary DATE OF ADMISSION: November 17, 2016 at 11:50 DATE OF DISCHARGE: November 19, 2016 DISCHARGE DIAGNOSES: 1. . 2. . REASON FOR ADMISSION: Overdose on Xanax and Klonopin while drinking whiskey. Pt also a heroine addict. has lost 17 people so far this year due to overdoses. Argument with Boyfriend lead to impulsive act of overdose. CONSULTANTS INVOLVED: ekg, medical, psychiatry. TREATMENT AND PROGRESS ON THE UNIT : pt was very tired upon transfer from the medical floor and declined to meet with staff for treatment planning and discharge planning purposes until today. She seemed to have more energy in the evenings and would talk to staff about her plans, and needs then. She requested discharge today and signed SANAM so we could talk with Boyfriend. HOSPITAL COURSE: Pt was started on sertraline for depression. She was on the medication at the time of the overdose by a PCP Dr. St. She continues to use Heroine IV. Her boyfriend uses more than she does. She lives with him at his parents house. She did not participate in therapeutic programming. She ate her meals in her room. Her daughter spoke with DCP. She jacquie like pt to get help for drug addictio and depression. Pt was presented with options for mental health treatment and substance abuse treatment. Pt has been in rehab before. She does not want to return. She does not want outpatient substance abuse treatment or mental health treatment. She declined grief and bereavement therapy. She will be given an appt at the [facility] for follow up regarding HTN, orthostatic hypotension. Her EKG was also discussed with her and she agrees to inform her PCP about it and perhaps obtain another . DISCHARGE ASSESSMENT: MENTAL STATUS EXAMINATION ON DISCHARGE: Patient is a 41-year old female, who is wearing hospital garb, long hair Speech is spontaneous Language skills are good Thought processes including: linear, some confusion at times. Thought content: appropriate Abstract reasoning, and computation: good Description of associations:concrete Description of abnormal or psychotic thoughts: denies no evidence of psychosis observed. Judgment: limited Insight: poor Orientation to day, date, time, situation, person Recent and remote memory: intact Attention span and concentration: good. Fund of knowledge: full Mood: euthymic Affect: tired. MEDICATIONS ON DISCHARGE: - amlodipine for blood pressure - sertraline for depression. PLAN/FOLLOWUP ARRANGEMENTS: Pt was informed that her choice of life style is dangerous. What she sees happening to her friends and family who are dying from drug overdoses could very well happen to her. Advised her to stop all use of substances and offered to arrange inpatient or outpatient treatment for her. She declined. She also was advised to continue on sertraline and not to stop it abruptly. We will make her a PCP appt at [facility]. She was encouraged to discuss her EKG and her sertraline with the provider there. program planner discussed discharge with boyfriend and mother. Pt is welcomed to return there and mother had only good things to say about pt. She is very supportive. Pts daughter was also contacted and she is very upset that pt is allowed to return to BF's home. She understands we cannot force her mother into treatment. We have encouraged it, strongly, but pt is adamant she will not go. The amount of time spent in the coordination of care for this patient was approximately 30 minutes. Vital Signs/I&Os Vital Signs Date Time Temp Pulse Resp B/P (MAP) Pulse Ox O2 Delivery O2 Flow Rate FiO2 11/19/16 08:35 77 124/72 11/18/16 18:00 99.0 16 11/17/16 14:46 96 Room Air Medications Scheduled Amlodipine Besylate (Amlodipine Besylate) 5 Mg Tab, 5 MG PO DAILY for 30 Days, # 30 Sertraline Hcl (Sertraline HCl) 50 Mg Tab, 50 MG PO DAILY, (Reported) Allergies Coded Allergies: No Known Allergies (Unverified , 11/15/16) Jaida Flores November 19, 2016 14:25
[2016-11-19] MEDS ORDERED: AMLO5TAB2 PO (14:59)
== END 2016-11-19 16:35 | disposition home or self-care (01) | DRG 751 ==
LOC: M PSY 11:50 → UNDODISIN 11:55
PROVIDERS: ADMIT Psychiatry & Neurology Psychiatry; ATTEND Psychiatry & Neurology Psychiatry
DX: F32.2 Major depressive disorder, single episode, severe without psychotic features (principal); F11.20 Opioid dependence, uncomplicated; F13.20 Sedative, hypnotic or anxiolytic dependence, uncomplicated; F10.10 Alcohol abuse, uncomplicated; I10 Essential (primary) hypertension; F17.210 Nicotine dependence, cigarettes, uncomplicated; Z91.5 Personal history of self-harm; B18.2 Chronic viral hepatitis C; D72.829 Elevated white blood cell count, unspecified; I95.9 Hypotension, unspecified; Z79.899 Other long term (current) drug therapy